=== PATIENT | female | born 1985 | race Caucasian/White ===

== ENCOUNTER 2018-12-27 17:07 | Emergency (ER) | payer BC ==
[~2018-12-27] VITALS: Wt 100.3 kg
[2018-12-27] MEDS ORDERED: morphine 4 MG/ML VIAL IV STA (18:34)
[2018-12-27] MEDS ORDERED: ONDANSETRON 4 MG INJ IV STA (18:34)
[2018-12-27] MEDS ORDERED: SOD CHLORIDE 0.9% 1,000 ML IV STA (18:34)
[2018-12-27] MEDS ORDERED: KETOROLAC 30 MG INJ IV STA (19:27)
[2018-12-27] MEDS ORDERED: ACETAMINOPHEN 325 MG TAB PO ONE (19:30)
[2018-12-27] MEDS ORDERED: ACET500C5 PO (22:10)
[2018-12-27] MEDS ORDERED: PRED20TA PO (22:10)
[2018-12-27] MEDS ORDERED: TRAM50TA2 PO (22:23)
[2018-12-27 22:30] VITALS: BP 116/62; PULSE 75; RESP 18
--- NOTE | 2018-12-28 09:34 | ERD ---
ER Documentation Chief Complaint Chief Complaint AP X COUPLE OF WEEKS HPI 33-year-old female patient with no significant past medical history presents ED complaining of abdominal pain that started a few weeks ago. She states that her pain is in the mid abdominal region. States that she has had 3-4 episodes of nonbilious nonbloody vomiting. Rates her pain a 10 out of 10. Describes her pain as a sharp pulling sensation. States that her last bowel movement was earlier this morning. Reports that her last menstruation was last month. Denies any chest pain, shortness of breath, nausea, vomiting, diarrhea, neck stiffness. Patient has not had any diarrhea or constipation. Denies any dysuria, urgency, frequency, hematuria. ROS All systems reviewed and are negative except as per history of present illness. Medications Home Meds Active Scripts Tramadol HCl (Tramadol HCl) 50 Mg Tablet, 50 MG PO Q8H PRN for PAIN, #20 TAB Prov:CELE SHUKLA PA-C 12/27/18 Acetaminophen* (Tylophen*) 500 Mg Capsule, 1 CAP PO Q6H PRN for PAIN AND OR ELEVATED TEMP, #20 CAP Prov:CELE SHUKLA PA-C 12/27/18 Prednisone* (Prednisone*) 20 Mg Tab, 40 MG PO DAILY for 5 Days, TAB Prov:CELE SHUKLA PA-C 12/27/18 Allergies Allergies: Coded Allergies: No Known Allergy (Unverified , 12/27/18) PMhx/Soc Medical and Surgical Hx: pt denies Medical Hx, pt denies Surgical Hx Hx Alcohol Use: No Hx Substance Use: No Hx Tobacco Use: No Smoking Status: Never smoker FmHx Family History: No diabetes, No coronary disease Physical Exam Vitals Vital Signs Date Temp Pulse Resp B/P (MAP) Pulse Ox O2 O2 Flow FiO2 Time Delivery Rate 12/27/18 98.2 75 18 116/62 97 Room Air 22:30 (80) 12/27/18 100.7 19:46 12/27/18 100.7 102 18 140/80 99 17:13 (100) Physical Exam Const: Nri-[id number], well-nourished. In no acute distress. Head: Atraumatic, normocephalic Eyes: Normal Conjunctiva without injection. No purulent discharge. ENT: Normal external ear, nose. Moist oropharynx without tonsillar exudates. Non-erythematous pharynx. Uvula midline. No drooling. No trismus. Neck: No cervical midline tenderness. Full range of motion. No meningismus. No cervical lymphadenopathy. No JVD. Resp: Clear to auscultation bilaterally. No wheezing, rhonchi, rales, or crackles. No accessory muscle use. No retractions. Cardio: Regular rate and rhythm. No murmurs, rubs or gallops. Abd: Soft, mid abdominal tenderness, non distended. Normal bowel sounds. No palpable masses. No rebound tenderness. No guarding. Negative McBurney's point. Negative psoas sign. Negative obturator sign. Skin: No petechiae or rashes Back: No midline tenderness. No CVA tenderness. Ext: No cyanosis, or edema. Neur: Awake and alert. Normal gait. Normal coordination. Psych: Normal Mood and Affect Result Diagram: 12/27/18192312/27/181923 Results 24 hrs Laboratory Tests Test 12/27/18 19:24 12/27/18 19:25 12/27/18 19:43 White Blood Count 5.7 10^3/ul Red Blood Count 4.97 10^6/ul Hemoglobin 13.8 g/dl Hematocrit 41.9 % Mean Corpuscular Volume 84.3 fl Mean Corpuscular Hemoglobin 27.8 pg Mean Corpuscular 32.9 g/dl Hemoglobin Concent Red Cell Distribution Width 12.6 % Platelet Count 179 10^3/UL Mean Platelet Volume 11.9 fl Immature Granulocytes % 0.400 % Neutrophils % 59.8 % Lymphocytes % 27.7 % Monocytes % 10.6 % Eosinophils % 1.1 % Basophils % 0.4 % Nucleated Red Blood Cells % 0.0 /100WBC Immature Granulocytes # 0.020 10^3/ul Neutrophils # 3.4 10^3/ul Lymphocytes # 1.6 10^3/ul Monocytes # 0.6 10^3/ul Eosinophils # 0.1 10^3/ul Basophils # 0.0 10^3/ul Nucleated Red Blood Cells # 0.0 10^3/ul Sodium Level 141 mmol/L Potassium Level 3.6 mmol/L Chloride Level 107 mmol/L Carbon Dioxide Level 24 mmol/L Anion Gap 10 Blood Urea Nitrogen 8 mg/dl Creatinine 0.69 mg/dl Est Glomerular Filtrat > 60 mL/min Rate mL/min Glucose Level 111 mg/dl Calcium Level 8.7 mg/dl Total Bilirubin 0.5 mg/dl Direct Bilirubin 0.00 mg/dl Indirect Bilirubin 0.5 mg/dl Aspartate Amino 30 IU/L Transf (AST/SGOT) Alanine 31 IU/L Aminotransferase (ALT/SGPT) Alkaline Phosphatase 53 IU/L Total Protein 7.7 g/dl Albumin 4.3 g/dl Globulin 3.40 g/dl Albumin/Globulin Ratio 1.26 Lipase 67 U/L Beta HCG, Quantitative < 2.4 mIU/ml Urine Color YELLOW Urine Clarity SLIGHTLY CLOUDY Urine pH 6.0 Urine Specific Equality 1.011 Urine Ketones NEGATIVE mg/dL Urine Nitrite NEGATIVE mg/dL Urine Bilirubin NEGATIVE mg/dL Urine Urobilinogen NEGATIVE mg/dL Urine Leukocyte Esterase NEGATIVE Jj/ul Urine Microscopic RBC 30 /HPF Urine Microscopic WBC 2 /HPF Urine Squamous Epithelial Cells FEW /HPF Urine Bacteria FEW /HPF Urine Mucus FEW /HPF Urine Hemoglobin 2+ mg/dL Urine Glucose NEGATIVE mg/dL Urine Total Protein NEGATIVE mg/dl Serum HCG, Qualitative NEGATIVE Current Medications Medications Dose Sig/Tal Start Time Status Last (Trade) Ordered Route PRN Stop Time Admin Dose Reason Admin Sodium 1,000 ml @ Q1H STAT 12/27/18 DC 12/27/18 Chloride 1,000 mls/hr IV 18:34 19:45 12/27/18 19:33 Morphine 4 mg ONCE STAT 12/27/18 Cancel Sulfate IV 18:34 (morphine) 12/27/18 18:35 Ondansetron 4 mg ONCE STAT 12/27/18 DC 12/27/18 HCl (Zofran IV 18:34 19:45 Inj) 12/27/18 18:36 Ketorolac 30 mg ONCE STAT 12/27/18 DC 12/27/18 Tromethamine IV 19:27 20:05 (Toradol) 12/27/18 19:28 650 mg ONCE ONCE 12/27/18 DC 12/27/18 Acetaminophen PO 19:30 19:46 (Tylenol 12/27/18 19:31 Tab) Procedures/MDM 33-year-old female patient with no significant past medical history presents to the ED complaining of abdominal pain that started a few weeks ago. Patient is afebrile and nontoxic-appearing. Patient was further worked up with CBC, CMP, lipase, UA, CT of the abdomen and pelvis without contrast. Patient's pain and symptoms have improved after treatment with 1 L normal s kwame, 4 mg IV morphine, 4 mg IV Zofran. CBC: No leukocytosis. No e/o of systemic infection. No e/o anemia. CMP: No e/o severe acidosis, alkalosis, renal failure, diabetic ketoacidosis, liver disease Lipase within normal limits. Urine: No leukocyte esterase, no nitrites, no hematuria. Urine : Negative IMPRESSION: 1. Mild central mesenteric edema with mildly prominent central mesenteric lymph nodes. This is nonspecific, may reflect mesenteric panniculitis. 2. No evidence of appendicitis. 3. Mild fatty changes of the liver. 4. Additional findings as detailed above. Noted to have mild central mesenteric edema with mildly prominent central mesenteric lymph nodes. Patient will be treated for the possibility of mesenteric panniculitis. This is where patient's pain is, mid abdomen. Patient reports that her pain has improved. Low suspicion for ectopic , ovaria n torsion, gastritis, GERD, peptic ulcer disease, cholecystitis, choledocholithiasis, cholangitis, pancreatitis, appendicitis, bowel obstruction, ileus, volvulus, nephrolithiasis, pyelonephritis, hepatitis, perforated viscus, diverticulitis, strangulated/incarcerated hernia, DKA, acute abdomen, mesenteric ischemia or other emergent conditions. Discussed case with my supervising physician, Dr. Kalie Harrison, stated that patient can be managed on outpatient basis with steroids. Diagnosis: Mesenteric panniculitis Discharge medications: Tylenol, Tramadol, Prednisone Follow up with primary care physician in 1-2 days for referral to deep submergence vehicle operator. Instructed patient to return to the ED sooner for any worsening symptoms. Patient's questions were answered. Patient understood and agreed with discharge plan. Patient discharged stable. Disclaimer: Inadvertent spelling and grammatical errors are likely due to EHR/dictation software use and do not reflect on the overall quality of patient care. Also, please note that the electronic time recorded on this note does not necessarily reflect the actual time of the patient encounter. Departure Diagnosis: Primary Impression: Mesenteric panniculitis Condition: Stable Patient Instructions: Abdominal Pain Referrals: [facility] YOU HAVE RECEIVED A MEDICAL SCREENING EXAM AND THE RESULTS INDICATE THAT YOU DO NOT HAVE A CONDITION THAT REQUIRES URGENT TREATMENT IN THE EMERGENCY DEPARTMENT. FURTHER EVALUATION AND TREATMENT OF YOUR CONDITION CAN WAIT UNTIL YOU ARE SEEN IN YOUR DOCTORS OFFICE WITHIN THE NEXT 1-2 DAYS. IT IS YOUR RESPONSIBILITY TO MAKE AN APPOINTMENT FOR FOLOW-UP CARE. IF YOU HAVE A PRIMARY DOCTOR --you should call your primary doctor and schedule an appointment IF YOU DO NOT HAVE A PRIMARY DOCTOR YOU CAN CALL OUR PHYSICIAN REFERRAL HOTLINE AT IF YOU CAN NOT AFFORD TO SEE A PHYSICIAN YOU CAN CHOSE FROM THE FOLLOWING [facility] [address] [facility] [address] [facility] [facility] [address] [facility] [address] [facility] [address] [facility]. [facility] [address] [facility]. [facility] YOU HAVE RECEIVED A MEDICAL SCREENING EXAM AND THE RESULTS INDICATE THAT YOU DO NOT HAVE A CONDITION THAT REQUIRES URGENT TREATMENT IN THE EMERGENCY DEPARTMENT. FURTHER EVALUATION AND TREATMENT OF YOUR CONDITION CAN WAIT UNTIL YOU ARE SEEN IN YOUR DOCTORS OFFICE WITHIN THE NEXT 1-2 DAYS. IT IS YOUR RESPONSIBILITY TO MAKE AN APPOINTMENT FOR FOLOW-UP CARE. IF YOU HAVE A PRIMARY DOCTOR --you should call your primary doctor and schedule and appointment IF YOU DO NOT HAVE A PRIMARY DOCTOR YOU CAN CALL OUR PHYSICIAN REFERRAL HOTLINE AT . IF YOU CAN NOT AFFORD TO SEE A PHYSICIAN YOU CAN CHOSE FROM THE FOLLOWING [facility]: [facility] [address] [place] [address] [facility] [address] [place] [address] [facility] + [facility] [address] [place] [address] [facility]CIALTIES Additional Instructions: Call your primary care doctor TOMORROW for an appointment during the next 2-3 days for a referral to see a deep submergence vehicle operator.See the doctor sooner or return here if your condition worsens before your appointment time - fever, worsening abdominal pain, no bowel movements. CELE SHUKLA PA-C December 28, 2018 09:34
== END 2018-12-27 22:32 | disposition home or self-care (01) ==
LOC: FTE 17:07
DX: K65.4 Sclerosing mesenteritis (principal)
CPT/HCPCS: 36415; 74176; 80053; 81001; 83690; 84702; 84703; 85025; 96374; 96375; J1885; J2405; J7030; Z7502; Z7610